=== PATIENT | male | born 1940 | race African-American/Black ===

== ENCOUNTER 2017-02-12 17:56 | Emergency (ER) | payer BC, MEDICARE ==
[~2017-02-12] VITALS: Ht 177.8 cm; Wt 85.0 kg
[2017-02-12] MEDS ORDERED: PANTOPRAZOLE SODIUM 40 MG/VIAL IV SCH (20:00)
[2017-02-12 20:07] LABS: BASOPHILS % 0.9 % (0.0-2.0); EOSINOPHILS % 3.4 % (0.0-5.0); HEMATOCRIT. 41.1 % (42.0-52.0); HEMOGLOBIN. 13.9 g/dL (14.0-18.0); LYMPHOCYTES % 40.2 % (20.0-50.0); MEAN CORPUSCULAR HEMOGLOBIN 32.1 pg (28.0-32.0); MEAN CORPUSCULAR VOLUME 94.9 fL (80.0-94.0); MEAN PLATELET VOLUME 8.8 fl (7.4-10.4); MONOCYTES % 14.7 % (2.0-8.0); NEUTROPHILS % 40.8 % (40.0-76.0); PLATELET 163 x1000/uL (130-400); RED BLOOD CELL COUNT 4.34 mill/uL (4.7-6.1); RED CELL DISTRIBUTION WIDTH 13.9 % (11.6-14.6)
[2017-02-12 20:10] LABS: CHLORIDE 109 mEq/L (98-107)
[2017-02-12 20:13] LABS: PROTHROMBIN TIME 10.7 sec
[2017-02-12 20:18] LABS: CARBON DIOXIDE 28 mEq/L (21-32)
[2017-02-12 23:50] VITALS: BP 154/88
== END 2017-02-12 23:51 | disposition home or self-care (01) ==
LOC: ER 20:23 → CANBEDREQ 02-13 01:10
DX: R04.2 Hemoptysis (principal); I10 Essential (primary) hypertension; Z88.8 Allergy status to other drugs, medicaments and biological substances
CPT/HCPCS: 36415; 71010; 80053; 85025; 85610; 86850; 86900; 86901; 96374; 99285; C9113; Z7610; 81025